=== PATIENT | female | born 2000 | race Caucasian/White ===

== ENCOUNTER 2024-02-27 11:48 | Emergency (ER) | payer OTHER, SELFPAY ==
[2024-02-27 11:58] VITALS: BP 109/77
[2024-02-27 12:17] LABS: % Basophils 0.2 % (0-2); % Eosinophils 0.4 % (0-6); % Immature Granulocytes 0.3 % (0-0.5); % Lymphocytes 11.2 % (20.5-51.1); % Monocytes 6.4 % (1.7-9.3); % Neutrophils 81.5 % (42.2-75.2); Absolute Lymphocytes 1.1 10^3/uL (1.2-3.4); Absolute Monocytes 0.6 10^3/uL (0.1-0.6); Absolute Neutrophils 7.7 10^3/uL (1.4-6.5); Hematocrit 38.4 % (37.0-47.0); Hemoglobin 13.8 g/dL (12.0-16.0); Mean Corp Hgb Conc. 35.9 g/dL (33.0-37.0); Mean Corpuscular Hgb 31.4 pg (27.0-31.0); Mean Corpuscular Volume 87.3 fL (81.0-99.0); Mean Platelet Volume 10.2 fL (7.4-10.4); Nucleated Red Blood Cells % 0 %; Platelet Count 193 10^3/uL (130-400); White Blood Cell Count 9.5 10^3/uL (4.8-10.8)
[2024-02-27 12:37] LABS: ALT (SGPT) 17 U/L (0-35); AST (SGOT) 17 U/L (14-36); Alkaline Phosphatase 41 U/L (38-126); Blood Urea Nitrogen 7 mg/dl (7-17); Calcium 9.8 mg/dl (8.4-10.2); Carbon Dioxide 21 mmol/L (22-30); Chloride 102 mmol/L (98-107); Glucose 95 mg/dl (70-99); Potassium 4.2 mmol/L (3.5-5.1); Sodium 134 mmol/L (135-145); Total Bilirubin 0.7 mg/dl (0.2-1.3); Total Protein 7.7 g/dl (6.3-8.2); eGFR > 60.00
[2024-02-27] MEDS: ZOFRAN 4 MG IV (13:36)
[2024-02-27] MEDS: D5/0.45%NACL 1000 IV ×2 (13:36→16:09)
[2024-02-27 14:12] LABS: Urine Albumin Trace (Neg - Trace); Urine Bilirubin Negative (Negative); Urine Character Clear (Clear); Urine Color Yellow; Urine Glucose Trace (Negative); Urine Ketone 3+ (Negative); Urine Leukocyte Trace (Negative); Urine Nitrite Negative (Negative); Urine Occult Blood Trace (Negative); Urine Specific Gravity 1.025 (<1.030); Urine Urobilinogen Negative (Neg - 1+)
[2024-02-27 14:25] LABS: HCG, Urine Qualitative Screen Positive
[2024-02-27 14:28] LABS: Urine Bacteria Moderate (Negative); Urine Mucus Moderate
[2024-02-27 14:29] LABS: Urine Red Blood Cell 0-2 /HPF (0-2)
[2024-02-27 14:30] LABS: Urine Squamous Cell 16-20 /LPF (Few); Urine White Cell 0-2 /HPF (0-5)
--- NOTE | 2024-02-27 15:51 | ED.GENMED ---
History of Present Illness
General
Chief Complaint: Problems
Source: patient and spouse
Exam Limitations: none
Time Seen by Provider: 02/27/24 12:57
Nursing documentation reviewed up to this point in time: agreed with
History of Present Illness
History of Present Illness:
23-year-old female with past medical history of anxiety depression currently 6 weeks by dates. G1, P0 presenting to the emergency department today with concerns of nausea and vomiting worsening over the past few days unable to tolerate
anything by mouth over the past day or so. Has had significant vomiting. Denies initial any abdominal pain vaginal bleeding. Has not been able to follow-up with her field traffic investigator as of yet.
Review of Systems
Review of Systems
Allergies reviewed?: Yes
All Other Systems: ROS reviewed and negative except as documented in HPI and ROS
Phy Exam
Physical Exam
Physical Exam:
GENERAL: Alert , in no apparent distress
EYE: pupils equal and reactive
NECK: Supple, no significant adenopathy.
ENT: o/p clr, mmm.
CARDIAC: Regular rate and rhythm .
LUNGS: Clear breath sounds bilaterally, no acute respiratory distress, no wheezes/rales/rhonchi
ABDOMEN: Soft, without focal tenderness, no r/g, no cvat
NEUROLOGICAL: Alert and oriented, no focal neuro deficits
SKIN: Warm and dry, skin intact.
MUSCULOSKELETAL: No edema, well perfused.
PSYCH: Normal and appropriate interaction.
Course
Orders/Labs/Results
Orders:
Orders
02/27/24
US W Transvaginal Urgent
Reason For Exam: preg pelvic pain
02/27/24 12:04
Beta HCG Quantitative Urgent
Comment: ADD ON
Complete Blood Count/With Diff Urgent
Comprehensive Metabolic Panel Urgent
02/27/24 13:13
Test Result ONCE
02/27/24 13:14
Ondansetron Injectable [Zofran] 4 mg IV NOW STA
02/27/24 14:00
Dextrose 5%/0.45%Sodchl 1000ML [D5/0.45%NaCl] 1,000 ml IV 1,000 mls/hr
02/27/24 14:02
HCG, Urine Qualitative Screen Urgent
Date Specimen was Collected: 02/27/24
Time Specimen was Collected: 13:27
Comment: ADD ON
Urinalysis Reflex To Culture Urgent
Date Specimen was Collected: 02/27/24
Time Specimen was Collected: 13:
Urine Microscopic Reflex Cult Urgent
Urine Culture Urgent
GABRIEL Source: U
Specimen Description:
Date Specimen was Collected: 02/27/24
Time Specimen was Collected: 13:
02/27/24 14:04
Add On- LAB Urgent
Tests Added?: urine hcg qual
02/27/24 15:01
Add On- LAB Urgent
Tests Added?: hcg quant serum
02/27/24 16:00
Dextrose 5%/0.9%Sodchl 1000 ml [D5/0.9% Sodium Chloride] 1,000 ml IV 1,000 mls/hr
Abnormal Lab Results
02/27/24 02/27/24
12:04 14:02
MCH 31.4 H pg
(27.0-31.0)
Absolute Neuts (auto) 7.7 H 10^3/uL
(1.4-6.5)
Absolute Lymphs (auto) 1.1 L 10^3/uL
(1.2-3.4)
Neutrophils % 81.5 H %
(42.2-75.2)
Lymphocytes % 11.2 L %
(20.5-51.1)
Sodium 134 L mmol/L
(135-145)
Carbon Dioxide 21 L mmol/L
(22-30)
Urine Ketones 3+ A
(Negative)
Ur Occult Blood Reflex Trace A
(Negative)
Leukocyte Esterase Rfl Trace A
(Negative)
Urine Bacteria (Reflex) Moderate A
(Negative)
Urine Glucose Trace A
(Negative)
02/27/24 12:04
02/27/24 12:04
Vital Signs
Initial and Last Documented VS:
Initial Vital Signs
Temp Pulse Resp BP Pulse Ox
99.2 F 70 20 109/77 98
02/27/24 11:58 02/27/24 11:58 02/27/24 11:58 02/27/24 11:58 02/27/24 11:58
Last Documented Vital Signs
Temp Pulse Resp BP Pulse Ox
99.2 F 70 20 109/77 98
02/27/24 11:58 02/27/24 11:58 02/27/24 11:58 02/27/24 11:58 02/27/24 11:58
Information
Weeks gestation: Weeks: (6)
Location: Location: (iup)
MDM/Problems Addressed
MDM/Problems Addressed:
23-year-old female presenting to the emergency department today with concerns of nausea and vomiting over the past few days. Currently 6 weeks by dates first . Labs were obtained here without acute abnormalities. Urinalysis without signs
of infection. Did have moderate bacteria but no white blood cells and significant squamous epithelial cells. Significant improvement of symptoms after receiving Zofran and D5 half-normal saline reassessed with significant improvement of symptoms.
Mentions some abdominal pain ultrasound performed showing intrauterine with normal heart rate. Otherwise stable for discharge return precautions given.
*Critical Care Note
Total Time (30-74mins, 75-104mins- exclusive of procedures): Not Applicable
ED Attending Note
-
Portions of this chart may have been created with voice recognition software.� Occasional wrong word or��sound alike� substitutions may have occurred due to the inherent limitations of voice recognition software.
Discharge Plan
Departure
Patient Disposition: Home (Routine Discharge)
Date of Disposition: 02/27/24
Time of Disposition: 17:41
Patient with high blood pressure during this ER visit?: No
Condition: Good
Covid-19: Not Applicable
Discharge Problem:
Vomiting during
Instructions: symptoms
Prescriptions:
New
ondansetron 4 mg tablet,disintegrating
4 mg PO Q6H PRN (Reason: nausea and vomiting) Qty: 7 0RF
No Action
prednisone 10 MG tablet
10 mg PO .TAPER Qty: 30 0RF
Rx Instructions:
Take 50mg daily for 2 days, 40mg daily for 2 days, 30mg daily for 2 days, 20mg daily for 2 days, 10mg daily for 2 days
hydroxyzine HCl 25 MG tablet
50 mg PO TIDPRN PRN (Reason: itching) Qty: 15 0RF
Referrals:
Ambika Ruano PA-C [Family Provider] -
Activity Restrictions/Additional Instructions:
You came to the emergency department today with concerns of nausea vomiting . Here you had improvement of symptoms after receiving Zofran. Please follow closely with an field traffic investigator. You did have an ultrasound today that showed an
intrauterine with normal heart rate. Return for any worsening, new or concerning symptoms.
Interventions
Interventions:
*Risk Screen - Suicide Last Done: 02/27/24 11:58
*General Assessment Last Done: 02/27/24 11:58
*Neglect/Abuse Screening Last Done: 02/27/24 11:58
*ED COVID-19 Vaccine History Last Done: 02/27/24 12:55
PT-Rrvnjd-Sfhyzttiyn Assessment Last Done: 02/27/24 12:55
ED-Female Genitourinary Assessment Last Done: 02/27/24 12:55
Discharge Date and Time
Print Language: FRENCH
[2024-02-27] MEDS: D5/0.45%NACL IV ×2 (16:06→17:03)
== END 2024-02-27 17:52 | disposition home or self-care (01) ==
LOC: EMR 11:48
PROVIDERS: Physician Assistant; EMERGENCY PHYSICIAN Emergency Medicine; FAMILY PHYSICIAN Physician Assistant Medical
DX: O21.9 Vomiting of pregnancy, unspecified (principal); Z3A.01 Less than 8 weeks gestation of pregnancy
CPT/HCPCS: 96374; 99284; 76801; 76817; 80053; 81003; 81015; 81025; 84702; 85025; 87086

== ENCOUNTER → 2024-04-04 08:44 | Outpatient (REF) | payer OTHER, SELFPAY | LOC: PNTC 08:44 | PROVIDERS: ATTENDING PHYSICIAN Obstetrics & Gynecology | DX: Z36.0 Encounter for antenatal screening for chromosomal anomalies (principal); Z36.82 Encounter for antenatal screening for nuchal translucency | CPT/HCPCS: 76801; 76813 ==

== ENCOUNTER → 2024-05-30 10:52 | Outpatient (REF) | payer OTHER, SELFPAY | LOC: PNTC 10:52 | PROVIDERS: ATTENDING PHYSICIAN Obstetrics & Gynecology | DX: Z34.00 Encounter for supervision of normal first pregnancy, unspecified trimester (principal) | CPT/HCPCS: 76811; 76817 ==

== ENCOUNTER → 2024-07-22 17:14 | Outpatient (REF) | payer OTHER, SELFPAY | LOC: PNTC 17:14 | PROVIDERS: ATTENDING PHYSICIAN Obstetrics & Gynecology | DX: O35.8XX0 Maternal care for other (suspected) fetal abnormality and damage, not applicable or unspecified (principal); O99.320 Drug use complicating pregnancy, unspecified trimester | CPT/HCPCS: 76816 ==

== ENCOUNTER → 2024-09-02 17:22 | Outpatient (REF) | payer OTHER, SELFPAY | LOC: PNTC 17:22 | PROVIDERS: ATTENDING PHYSICIAN Obstetrics & Gynecology | DX: O35.5XX0 Maternal care for (suspected) damage to fetus by drugs, not applicable or unspecified (principal) | CPT/HCPCS: 76816 ==

== ENCOUNTER 2024-10-17 20:47 | Inpatient (IN) | payer OTHER, SELFPAY ==
[2024-10-17 20:58] VITALS: BMI 33.7
[2024-10-17 21:19] VITALS: BP 127/87
[2024-10-17 21:57] LABS: Hematocrit 35.5 % (37.0-47.0); Hemoglobin 12.4 g/dL (12.0-16.0); Mean Corp Hgb Conc. 34.9 g/dL (33.0-37.0); Mean Corpuscular Volume 83.1 fL (81.0-99.0); Nucleated Red Blood Cells % 0 %; Platelet Count 178 10^3/uL (130-400); Red Cell Dist. Width 13.5 % (11.5-14.5)
[2024-10-17] MEDS: LR 1000 IV (23:14)
[2024-10-17] MEDS: PITOCIN 30 UNITS/NSS 500 ML IV (23:15)
[2024-10-18] MEDS: ZOFRAN ODT (ORALLY DISINTEGRATING) 4 MG PO ×3 (01:13→18:15)
[2024-10-18] MEDS: TUMS CHEWABLE TABLET 400 MG PO (04:25)
[2024-10-18] MEDS: LR 1000 IV (05:36)
[2024-10-18] MEDS: VALTREX 500 MG PO (08:14)
[2024-10-18] MEDS: PRENATAL PLUS 1 TABLET PO (08:14)
[2024-10-18] MEDS: COLACE 100 MG PO (08:14)
[2024-10-18] MEDS: CLARITIN 10 MG PO (08:14)
[2024-10-18] MEDS: TYLENOL 1000 MG PO (08:30)
[2024-10-18] MEDS: SUBLIMAZE 100 MCG EPIDURAL (15:31)
[2024-10-18] MEDS: FENTANYL/BUPIVACAINE 100 EPIDURAL (15:33)
[2024-10-18] MEDS: PITOCIN 30 UNITS/NSS 500 ML IV (22:40)
[2024-10-18] MEDS: TRANEXAMIC ACID 100 IV (23:45)
[2024-10-18] MEDS: METHERGINE INJECTION 0.2 MG IM (23:46)
[2024-10-18] MEDS: CYTOTEC 800 MCG SL (23:48)
[2024-10-19] MEDS: PITOCIN 30 UNITS/NSS 500 ML IV (00:20)
[2024-10-19] MEDS: VALTREX PO (00:20)
[2024-10-19] MEDS: TYLENOL PO (00:21)
[2024-10-19] MEDS: LEXAPRO PO (00:21)
[2024-10-19] MEDS: LEXAPRO 20 MG PO ×2 (00:58→21:47)
[2024-10-19] MEDS: TYLENOL 650 MG PO ×5 (00:58→23:20)
[2024-10-19 01:06] LABS: Hematocrit 32.3 % (37.0-47.0); Hemoglobin 11.5 g/dL (12.0-16.0); Mean Corp Hgb Conc. 35.6 g/dL (33.0-37.0); Mean Corpuscular Volume 84.6 fL (81.0-99.0); Platelet Count 139 10^3/uL (130-400); Red Cell Dist. Width 13.6 % (11.5-14.5)
[2024-10-19 01:11] LABS: APTT 28.6 Sec (23.4-35.0); Fibrinogen 537 MG/DL (199-459); INR 1.02; PT 13.7 Sec (11.4-14.6)
[2024-10-19 01:26] LABS: Blood Urea Nitrogen 10 mg/dl (7-17); Calcium 8.4 mg/dl (8.4-10.2); Carbon Dioxide 20 mmol/L (22-30); Chloride 109 mmol/L (98-107); Estimated Creatinine Clearance 122 ml/min; Glucose 86 mg/dl (70-99); Sodium 133 mmol/L (135-145); eGFR > 60.00
[2024-10-19] MEDS: MOTRIN 600 MG PO ×4 (02:40→23:21)
[2024-10-19] MEDS: PRENATAL PLUS 1 TABLET PO (07:35)
[2024-10-19] MEDS: CLARITIN 10 MG PO (07:35)
[2024-10-19] MEDS: COLACE 100 MG PO ×2 (07:35→20:23)
[2024-10-19 09:36] LABS: Hematocrit 29.0 % (37.0-47.0); Hemoglobin 10.1 g/dL (12.0-16.0)
[2024-10-19] MEDS: FEOSOL 325 MG PO (11:14)
[2024-10-20] MEDS: MOTRIN 600 MG PO (05:44)
[2024-10-20] MEDS: TYLENOL 650 MG PO ×2 (05:44→09:58)
[2024-10-20] MEDS: CLARITIN 10 MG PO (07:41)
[2024-10-20] MEDS: PRENATAL PLUS 1 TABLET PO (07:41)
[2024-10-20] MEDS: FEOSOL 325 MG PO (07:41)
[2024-10-20] MEDS: COLACE 100 MG PO (07:41)
[2024-10-20] MEDS: ZOFRAN ODT (ORALLY DISINTEGRATING) 4 MG PO (08:40)
[2024-10-22 11:06] LABS: Syphilis/T. pallidum Ab Reflex Negative (Negative)
== END 2024-10-20 13:33 | disposition home or self-care (01) | DRG 768 ==
LOC: LDRP 20:47
PROVIDERS: Student in an Organized Health Care Education/Training Program; ADMITTING PHYSICIAN Obstetrics & Gynecology
PROC: 3E033VJ Introduction of Other Hormone into Peripheral Vein, Percutaneous Approach (ICD-10-PCS; 2024-10-17)
PROC: 0UQMXZZ Repair Vulva, External Approach (ICD-10-PCS; 2024-10-18)
PROC: 0W3R7ZZ Control Bleeding in Genitourinary Tract, Via Natural or Artificial Opening (ICD-10-PCS; 2024-10-18)
PROC: 10907ZC Drainage of Amniotic Fluid, Therapeutic from Products of Conception, Via Natural or Artificial Opening (ICD-10-PCS; 2024-10-18)
PROC: 10E0XZZ Delivery of Products of Conception, External Approach (ICD-10-PCS; 2024-10-18)
DX: O48.0 Post-term pregnancy (principal); Z37.0 Single live birth; O98.32 Other infections with a predominantly sexual mode of transmission complicating childbirth; Z3A.40 40 weeks gestation of pregnancy; O70.0 First degree perineal laceration during delivery; A60.00 Herpesviral infection of urogenital system, unspecified; O99.344 Other mental disorders complicating childbirth; F41.9 Anxiety disorder, unspecified; F32.A Depression, unspecified; O77.0 Labor and delivery complicated by meconium in amniotic fluid; Z88.1 Allergy status to other antibiotic agents; Z88.5 Allergy status to narcotic agent; Z88.0 Allergy status to penicillin; Z91.51 Personal history of suicidal behavior
CPT/HCPCS: 36415; 80048; 85014; 85018; 85025; 85027; 85384; 85610; 85730; 86780; 86850; 86900; 86901